=== PATIENT | female | born 1950 ===

== ENCOUNTER 2018-06-03 21:09 | Emergency (ER) | payer OTHER ==
[~2018-06-03] VITALS: Ht 162.6 cm; Wt 56.0 kg
[2018-06-03 21:11] VITALS: TEMP 36.4; Ht 162.6 cm; Wt 56.0 kg
[2018-06-03] MEDS ORDERED: ONDANSETRON INJ 2 MG/ML 2 ML VIAL IV STA (21:53)
[2018-06-03] MEDS ORDERED: SODIUM CHLORIDE 0.9% 1000ML 500 ML IV ONE (21:53)
[2018-06-03] MEDS ORDERED: MoRPHine SULFATE 10 MG/ML CARP/VIAL IV PRN (22:00)
[2018-06-03] MEDS ORDERED: KETOROLAC TROMETHAMINE 30 MG/ML VIAL IV STA (22:07)
[2018-06-03 22:09] LABS: HEMATOCRIT 38.6 % (37-47); MEAN CELL VOLUME 89.1 fL (80-100); MEAN CORPUSCULAR HGB CONC 33.7 g/dl (32-36); PLATELET COUNT 209 K/uL (130-400); RED CELL DISTRIBUTION WIDTH CV 12.6 % (11.5-14.5); RED CELL DISTRIBUTION WIDTH SD 40.8 fL (36.4-46.3); WHITE BLOOD COUNT 10.27 K/uL (4.8-10.8)
[2018-06-03] MEDS ORDERED: NOTE (22:23)
[2018-06-03 22:32] LABS: ALBUMIN 3.7 gm/dl (3.4-5.0); ALKALINE PHOSPHATASE 61 U/L (45-117); ALT/SGPT 18 U/L (12-78); AST/SGOT 23 U/L (15-37); BLOOD UREA NITROGEN 16 mg/dl (7-18); CARBON DIOXIDE 28 mmol/L (21-32); CREATININE 0.81 mg/dl (0.60-1.20); GLUCOSE 108 mg/dl (70-99); LIPASE 108 U/L (73-393); POTASSIUM 3.1 mmol/L (3.5-5.1); SODIUM 139 mmol/L (136-145); TOTAL PROTEIN 7.4 gm/dl (6.4-8.2)
--- NOTE | 2018-06-03 23:07 | DIAGNOSTIC IMAGING REPORT ---
ABDOMEN AND PELVIS CT WITHOUT CONTRAST CT DOSE: 281.58 mGy.cm HISTORY: right flank pain. hx stones TECHNIQUE: Multiaxial CT images of the abdomen and pelvis were performed without contrast. A dose lowering technique was utilized adhering to the principles of ALARA. COMPARISON STUDY: None. FINDINGS: Mild right hydroureteronephrosis secondary to an obstructing 4 mm stone within the distal right ureter on image 374. Small amount of right perinephric fluid which extends anterior to the right psoas muscle. This could be reactive to the hydronephrosis or represent a forniceal rupture. Normal bladder. Multiple left peripelvic renal cysts. No renal calculi. The unenhanced spleen, adrenal glands, and pancreas are unremarkable. The gallbladder appears unremarkable. No retroperitoneal lymphadenopathy. The lung bases are clear. No pneumoperitoneum. No pneumatosis. No fractures within the visualized osseous structures. A left breast prosthesis is noted. No retroperitoneal lymphadenopathy. The uterus and bilateral adnexa are unremarkable. Suboptimal evaluation for bowel pathology due to the lack of intravenous and oral contrast. However, there is no definite bowel wall thickening or obstruction. Normal appendix. IMPRESSION: 1. A 4 mm obstructing stone within the distal right ureter resulting and mild right hydronephrosis. 2. Small amount of right perinephric fluid which extends anterior to the right psoas muscle. This could be reactive to the hydronephrosis or represent a forniceal rupture. Electronically signed by: Rico Duncan M.D. 06/03/2018 11:05 PM Dictated Date/Time: 06/03/2018 10:55 PM
[2018-06-04] MEDS ORDERED: ONDANSETRON INJ 2 MG/ML 2 ML VIAL IV STA (00:06)
[2018-06-04] MEDS ORDERED: ONDA4TAB10 SL (00:30)
[2018-06-04] MEDS ORDERED: ONDANSETRON HOME PACK 4MG OD TAB PO ONE (00:30)
[2018-06-04] MEDS ORDERED: OXYCODONE IR HOME PACK PO ONE (00:30)
[2018-06-04] MEDS ORDERED: MoRPHine SULFATE 4 MG/ML 1 ML CARP\\VIAL IV ONE (00:30)
[2018-06-04] MEDS ORDERED: OXYC-90 PO (00:30)
[2018-06-04 00:56] VITALS: BP 137/71; PULSE 63; O2SAT 95
--- NOTE | 2018-06-04 23:30 | EMERGENCY ROOM VISIT NOTE ---
History First contact with patient: 22:03 Chief Complaint: FLANK PAIN Stated Complaint: PAIN IN BODY History of Present Illness The patient is a 67 year old female who presents to the Emergency Room with complaints of right flank pain that began about 90 minutes prior to arrival. The patient is accompanied by her daughter who assist in the history as the patient speaks Hungarian primarily. The daughter is the primary kitchen runner and the patient is comfortable with this. Evidently the patient has a past history of kidney stones, and this feels similar. The patient is visiting from [place] and is traveling back home in about 2 and half weeks. The patient is nauseated with vomiting. She has not taken anything [id number] for her pain. She does have some blood in her urine and rates her current discomfort a 9/10. Review of Systems More than 10 systems were reviewed and otherwise negative with the exception of history of present illness. Past Medical/Surgical History History of kidney stones Social History Smoking Status: Never Smoker Drug Use: none Marital Status: Housing Status: other (Lives in [place]) Occupation Status: retired Current/Historical Medications Scheduled Ondasetron Odt (Zofran Odt), 4 MG SL Q6H Scheduled PRN Oxycodone Ir (Roxicodone Ir), 1-2 TAB PO Q6 PRN for Pain Miscellaneous Medications [Note] Physical Exam Vital Signs Date Time Temp Pulse Resp B/P (MAP) Pulse Ox O2 Delivery O2 Flow Rate FiO2 06/04/18 00:56 63 18 137/71 95 06/04/18 00:26 58 18 161/73 95 Room Air 06/03/18 22:49 64 18 139/74 95 Room Air 06/03/18 22:26 59 16 157/79 93 Room Air 06/03/18 21:11 36.4 74 18 171/69 99 Room Air Physical Exam VITALS: Vitals are noted on the nurse's note and reviewed by myself. Vital signs stable. GENERAL: Well-developed, well-nourished, white female who appears uncomfortable on examination. She is cooperative. NECK: Supple without nuchal rigidity. No lymphadenopathy. No thyromegaly. Cervical spine is nontender. HEART: Regular rate and rhythm without murmurs gallops or rubs. LUNGS: Clear to auscultation bilaterally without wheezes, rales or rhonchi. No retractions or accessory muscle use. ABDOMEN: Positive normal bowel sounds x 4. Soft, nontender, without masses or organomegaly. No guarding or rebound tenderness. MUSCULOSKELETAL: No muscle atrophy, erythema, or edema noted. Full range of motion in all extremities. No tenderness to palpation. Medical Decision & Procedures ER Provider Diagnostic Interpretation: ABDOMEN AND PELVIS CT WITHOUT CONTRAST CT DOSE: 281.58 mGy.cm HISTORY: right flank pain. hx stones TECHNIQUE: Multiaxial CT images of the abdomen and pelvis were performed without contrast. A dose lowering technique was utilized adhering to the principles of ALARA. COMPARISON STUDY: None. FINDINGS: Mild right hydroureteronephrosis secondary to an obstructing 4 mm stone within the distal right ureter on image 374. Small amount of right perinephric fluid which extends anterior to the right psoas muscle. This could be reactive to the hydronephrosis or represent a forniceal rupture. Normal bladder. Multiple left peripelvic renal cysts. No renal calculi. The unenhanced spleen, adrenal glands, and pancreas are unremarkable. The gallbladder appears unremarkable. No retroperitoneal lymphadenopathy. The lung bases are clear. No pneumoperitoneum. No pneumatosis. No fractures within the visualized osseous structures. A left breast prosthesis is noted. No retroperitoneal lymphadenopathy. The uterus and bilateral adnexa are unremarkable. Suboptimal evaluation for bowel pathology due to the lack of intravenous and oral contrast. However, there is no definite bowel wall thickening or obstruction. Normal appendix. IMPRESSION: 1. A 4 mm obstructing stone within the distal right ureter resulting and mild right hydronephrosis. 2. Small amount of right perinephric fluid which extends anterior to the right psoas muscle. This could be reactive to the hydronephrosis or represent a forniceal rupture. Laboratory Results 06/03/18 21:50 06/03/18 21:50 Test 06/03/18 21:50 06/03/18 23:55 Red Blood Count 4.33 M/uL (4.2-5.4) Mean Corpuscular Volume 89.1 fL (80-100) Mean Corpuscular Hemoglobin 30.0 pg (25-34) Mean Corpuscular Hemoglobin Concent 33.7 g/dl (32-36) RDW Standard Deviation 40.8 fL (36.4-46.3) RDW Coefficient of Variation 12.6 % (11.5-14.5) Mean Platelet Volume 10.0 fL (7.4-10.4) Anion Gap 9.0 mmol/L (3-11) Est Creatinine Clear Calc Drug Dose 56.6 ml/min Estimated GFR () 85.9 Estimated GFR (Non- 74.1 BUN/Creatinine Ratio 20.1 (10-20) Calcium Level 9.0 mg/dl (8.5-10.1) Total Bilirubin 0.3 mg/dl (0.2-1) Direct Bilirubin < 0.1 mg/dl (0-0.2) Aspartate Amino Transf (AST/SGOT) 23 U/L (15-37) Alanine Aminotransferase (ALT/SGPT) 18 U/L (12-78) Alkaline Phosphatase 61 U/L (45-117) Total Protein 7.4 gm/dl (6.4-8.2) Albumin 3.7 gm/dl (3.4-5.0) Lipase 108 U/L (73-393) Urine Color YELLOW Urine Appearance CLOUDY (CLEAR) Urine pH 8.5 (4.5-7.5) Urine Specific [place] 1.016 (1.000-1.030) Urine Protein NEG (NEG) Urine Glucose (UA) NEG (NEG) Urine Ketones 1+ (NEG) Urine Occult Blood NEG (NEG) Urine Nitrite NEG (NEG) Urine Bilirubin NEG (NEG) Urine Urobilinogen NEG (NEG) Urine Leukocyte Esterase NEG (NEG) Urine WBC (Auto) 1-5 /hpf (0-5) Urine RBC (Auto) 5-10 /hpf (0-4) Urine Hyaline Casts (Auto) 0 /lpf (0-5) Urine Epithelial Cells (Auto) 10-20 /lpf (0-5) Urine Bacteria (Auto) NEG (NEG) Medications Administered Medications (Trade) Dose Ordered Sig/Navjto Route Start Time Stop Time Status Last Admin Dose Admin Sodium Chloride 500 ml @ 999 mls/hr Q31M ONCE IV 06/03/18 21:53 06/03/18 22:23 DC 06/03/18 22:22 999 MLS/HR Ondansetron HCl (Zofran Inj) 4 mg NOW STAT IV 06/03/18 21:53 06/03/18 21:54 DC 06/03/18 22:18 4 MG Morphine Sulfate (MoRPHine SULFATE INJ) 6 mg Q10M PRN IV 06/03/18 22:00 8/14/18 01:32 DC 06/03/18 22:18 6 MG Ketorolac Tromethamine (Toradol Inj) 30 mg NOW STAT IV 06/03/18 22:07 06/03/18 22:09 DC 06/03/18 22:17 30 MG Ondansetron HCl (Zofran Inj) 4 mg NOW STAT IV 06/04/18 00:06 06/04/18 00:07 DC 06/04/18 00:06 4 MG Morphine Sulfate (MoRPHine SULFATE INJ) 4 mg NOW ONCE IV 06/04/18 00:30 06/04/18 00:31 DC 06/04/18 00:27 4 MG Oxycodone HCl (Roxicodone Immediate Rel 5MG Home Pack) 1 homepack UD ONCE PO 06/04/18 00:30 06/04/18 00:31 DC 06/04/18 00:45 1 HOMEPACK Ondansetron HCl (ZOFRAN ODT 4MG Home Pack) 1 homepack UD ONCE PO 06/04/18 00:30 06/04/18 00:31 DC 06/04/18 00:45 1 HOMEPACK ED Course Physical exam and history were performed. Nursing notes, EMR, and Medication List were personally reviewed. Patient appears to have right flank pain for the past 90 minutes. She appears uncomfortable on examination. IV access was established and labs were obtained. The patient was hydrated and medicated as above. Because of her symptoms and history of stone I did elect to perform a CT scan. The patient's blood work is as above and was reviewed. She does not have a significantly elevated white blood cell count, gross anemia, bandemia, or significant electrolyte imbalance. Lipase and transaminases are not diagnostic. Urine is without obvious signs of infection. The patient CT scan does reveal a 4 mm distal stone. I did discuss the CT report with urology out of concern for a possible ruptured forniceal versus hydro. Urology feels that her symptoms are within normal expectations, and the patient is a good candidate for outpatient follow-up. On reevaluation the patient was resting very comfortably in her ER bed. She did have significant improvement after pain medication. The patient would like to be discharged as she is visiting family locally. I will give her a course of pain medication and nausea medication. She is to return to the ER with any new, worsening, or concerning symptoms. I did give her information for urology. She was otherwise invited back to the ER with any new, worsening, or concerning symptoms. The chart was completed utilizing [employer] Speech Voice Recognition Software. Grammatical errors, random word insertions, pronoun errors, and incomplete sentences are an occasional consequence of this system due to software limitations, ambient noise, and hardware issues. Any formal questions or concerns about the content, text, or information contained within the body of this dictation should be directly addressed to the provider for clarification. . Medical Decision Differential diagnosis: Etiologies such as renal colic, appendicitis, diverticulitis, mesenteric ischemia, aortic pathology, infections, inflammatory bowel disease, PUD, biliary pathology, UTI, as well as others were entertained. Impression Primary Impression: Right ureteral calculus Departure Information Dispostion Home / Self-Care Condition GOOD Prescriptions Ondasetron Odt (ZOFRAN ODT) 4 Mg Tab 4 MG SL Q6H for Nausea, #12 TAB Prov: Wilder Fallon PA-C 06/04/18 Oxycodone Ir (Roxicodone Ir) 5 Mg Tab 1-2 TAB PO Q6 Y for Pain, #24 TAB For Initial Treatment Prov: Wilder Fallon PA-C 06/04/18 Referrals Herminia Ag MD Forms HOME CARE DOCUMENTATION FORM, IMPORTANT VISIT INFORMATION Patient Instructions My [facility] Additional Instructions You were seen and evaluated today on an emergency basis only. This is not a substitute for, or an effort to provide, complete comprehensive medical care. It is not possible to recognize and treat all injuries or illnesses in a single emergency department visit. For this reason it is recommended that you followup with Urology, Dr. Ag office, with any ongoing or persisting symptoms. For baseline pain relief you may alternate ibuprofen and acetaminophen every 4 hours for pain control. Take 600 mg ibuprofen (Advil) and then 4 hours later take 1000 mg acetaminophen (Tylenol). Do not take more than 3000 mg acetaminophen in a single day. Oxycodone (OxyIR) 5mg: Take ONE or TWO pills by mouth every SIX hours for breakthrough pain. Avoid alcohol, operating machinery or dangerous equipment, working on ladders or roofs, DRIVING, or situations where being under the influence may be dangerous. It is recommended to use an [id number] stool softener such as Colace, 100mg twice daily while taking this medication to avoid constipation. Zofran 4 mg ODT: Dissolve 1 tablet every 6 hrs as needed for nausea. You are welcome to return to the emergency department anytime with new, worsening, or concerning symptoms.
== END 2018-06-04 00:47 | disposition home or self-care (01) ==
LOC: C.EDB 21:10 → EDBD 21:10 → C.EDC 06-04 00:47
DX: N20.1 Calculus of ureter (principal); R11.2 Nausea with vomiting, unspecified